=== PATIENT | female | born 1995 | race Caucasian/White ===

== ENCOUNTER → 2021-10-08 | Outpatient (REF) | payer BC | LOC: M SFHCWAGY 12:53 | PROVIDERS: ATTEND Specialist | DX: Z34.83 Encounter for supervision of other normal pregnancy, third trimester (principal) ==

== ENCOUNTER → 2021-10-08 | Outpatient (REF) | payer BC | LOC: M PLALAB 11:42 | PROVIDERS: ATTEND Specialist | DX: Z34.83 Encounter for supervision of other normal pregnancy, third trimester (principal); Z53.9 Procedure and treatment not carried out, unspecified reason ==

== ENCOUNTER 2021-11-01 01:23 | Inpatient (IN) | payer BC ==
[~2021-11-01] VITALS: Ht 154.9 cm; Wt 65.7 kg
[2021-11-01] VITALS (49 sets, daily range): BP systolic 85–143; BP diastolic 50–73
[2021-11-01] MEDS ORDERED: PRENTAB9 PO (01:42)
[2021-11-01] MEDS ORDERED: IRON65TA2 PO (01:42)
[2021-11-01] MEDS ORDERED: BUPR-69 PO (01:42)
[2021-11-01] MEDS ORDERED: HOME MED LIST COMPLETE! XX SCH (02:10)
[2021-11-01 02:27] LABS: HEMATOCRIT 33.5 % (36.0-47.0); HEMOGLOBIN 11.5 g/dl (12.0-15.5); MEAN CORPUSCULAR HEMOGLOBIN 30.8 pg (27.0-33.0); MEAN CORPUSCULAR HGB CONC 34.3 g/dl (32.0-36.5); MEAN CORPUSCULAR VOLUME 89.8 fl (80.0-96.0); PLATELET COUNT, AUTOMATED 217 10^3/uL (150-450); RED BLOOD COUNT 3.73 10^6/uL (4.00-5.40); WHITE BLOOD COUNT 12.1 10^3/uL (4.0-10.0)
[2021-11-01] MEDS ORDERED: LIDOCAINE 1% MDV 20ML VIAL INFIL PRN (02:40)
[2021-11-01] MEDS ORDERED: METHYLERGONOVINE MALEATE 0.2 MG/ML VIAL (J2210) IM PRN (02:40)
[2021-11-01] MEDS ORDERED: OXYTOCIN DRIP 30 UNITS in IV 1 EA IV PRN (02:40)
[2021-11-01] MEDS ORDERED: TRANEXAMIC ACID INJection 1,000 MG in NS 100 ML IV PRN (02:40)
[2021-11-01] MEDS: LR 1,000 ML IV SCH ×4 (02:59→10:47)
[2021-11-01] MEDS ORDERED: ONDANSETRON 4MG/2ML VIAL IV PRN (03:26)
[2021-11-01] MEDS ORDERED: NALOXONE INJ 0.4MG/1ML VIAL (J2310 PER 1MG) IV PRN (03:26)
[2021-11-01] MEDS ORDERED: ePHEDrine SULFATE 25 MG/5 ML(5MG/ML) SYRINGE IV PRN (03:26)
[2021-11-01] MEDS ORDERED: LACTATED RINGER'S 1000 ML IV PRN (03:26)
[2021-11-01] MEDS ORDERED: FENTANYL 2MCG/ML ROPIVACAINE 0.2% IN 0.9% NACL 100ML IVBAG As Ordered ONE (03:26)
[2021-11-01] MEDS ORDERED: REFRIGERATOR IV KEYS XX PRN (03:26)
[2021-11-01] MEDS ORDERED: diphenhydrAMINE 50MG/ML VIAL (J1200) IV PRN (03:26)
[2021-11-01] MEDS ORDERED: EPIDURAL/PCA KEYS XX PRN (03:26)
[2021-11-01] MEDS ORDERED: EPIDURAL COMMENT XX SCH (03:26)
[2021-11-01] MEDS: FENTANYL/ROPIVACAINE/NACL BAG 100 ML EPIDURAL SCH ×2 (04:38→13:48)
[2021-11-01] MEDS ORDERED: OXYTOCIN DRIP 30 UNITS in IV 1 EA IV SCH (11:50)
[2021-11-01] MEDS ORDERED: ACETAMINOPHEN 500 MG TAB PO PRN (15:30)
[2021-11-01] MEDS ORDERED: IBUPROFEN 600MG TAB PO PRN (15:30)
[2021-11-01] MEDS ORDERED: METHYLERGONOVINE MALEATE 0.2 MG TAB PO PRN (15:30)
[2021-11-01] MEDS ORDERED: ACETAMINOPHEN TAB 650MG DOSE (2X325MG) PO PRN (15:30)
[2021-11-01] MEDS ORDERED: DIBUCAINE 1% OINTMENT 30GM TOP PRN (15:30)
[2021-11-01] MEDS ORDERED: RHOGAM 300 MCG (1500 IU) INJ (J2790) IM SCH (15:30)
[2021-11-01] MEDS ORDERED: DOCUSATE SODIUM 100MG CAPSULE PO PRN (15:30)
[2021-11-01] MEDS ORDERED: MEASLES,MUMPS,RUBELLA VACCINE INJ (MMR-II) (90707) SC SCH (15:30)
[2021-11-01] MEDS ORDERED: OXYTOCIN DRIP 30 UNITS in IV 1 EA IV ONE (15:45)
[2021-11-01] MEDS: IBUPROFEN 800 MG TAB PO PRN (19:04)
[2021-11-02 06:00] VITALS: BP 105/61
[2021-11-02] MEDS: PRENATAL VITAMINS CHEWABLE TABLET PO SCH (08:37)
[2021-11-02] MEDS: IBUPROFEN 800 MG TAB PO PRN ×2 (08:37→17:01)
[2021-11-02] MEDS ORDERED: INFLUENZA QUADRIVALENT PF VACCINE 0.5ML SYRINGE IM ONE (09:00)
[2021-11-02 18:00] VITALS: BP 98/63
[2021-11-03] MEDS: IBUPROFEN 800 MG TAB PO PRN ×2 (05:56→12:20)
[2021-11-03 06:00] VITALS: BP 105/68
[2021-11-03] MEDS: PRENATAL VITAMINS CHEWABLE TABLET PO SCH (09:04)
[2021-11-03] MEDS ORDERED: ACET-683 PO (11:36)
[2021-11-03] MEDS ORDERED: IBUP80TA PO (11:36)
== END 2021-11-03 18:15 | disposition home or self-care (01) | DRG 560 ==
LOC: M LDO 01:23 → OBSVTOIN 02:18 → M LDI 02:18 → M OBS 17:15
PROVIDERS: ADMIT Obstetrics & Gynecology; ATTEND Obstetrics & Gynecology
PROC: 10E0XZZ Delivery of Products of Conception, External Approach (ICD-10-PCS; principal; 2021-11-01)
PROC: 0HQ9XZZ Repair Perineum Skin, External Approach (ICD-10-PCS; 2021-11-01)
DX: O69.81X0 Labor and delivery complicated by cord around neck, without compression, not applicable or unspecified (principal); O70.0 First degree perineal laceration during delivery; Z37.0 Single live birth; Z3A.39 39 weeks gestation of pregnancy; Z88.0 Allergy status to penicillin

== ENCOUNTER → 2022-12-12 | Outpatient (REF) | payer BC ==
[~2022-12-12] MED LIST: ACET-683 PO; BUPR-69 PO; IBUP80TA PO; IRON65TA2 PO; PRENTAB9 PO
== END ==
LOC: M SFHCWAGY 14:56
PROVIDERS: ATTEND Nurse Practitioner Family
DX: F52.6 Dyspareunia not due to a substance or known physiological condition (principal); Z11.3 Encounter for screening for infections with a predominantly sexual mode of transmission

== ENCOUNTER → 2023-02-20 | Outpatient (REF) | payer BC | LOC: M SFHCWAGY 17:09 | PROVIDERS: ATTEND Nurse Practitioner Family | DX: Z12.4 Encounter for screening for malignant neoplasm of cervix (principal) | CPT/HCPCS: 87624; G0123 ==

== ENCOUNTER 2023-03-31 11:33 | Day surgery (SDC) | payer BC ==
[~2023-03-31] VITALS: Ht 157.5 cm; Wt 47.6 kg
[~2023-03-31 11:33] MED LIST changes: +BACL10TA2 PO; +BUPR15TA PO; +BUSP10TA PO; +DEPO150I12 IM; +NS 1,000 ML IV ONE
[2023-03-31] MEDS ORDERED: fentaNYL 100 MCG/2 ML INJECTION As Ordered ONE (12:34)
[2023-03-31] MEDS ORDERED: propofoL 200 MG/20 ML VIAL As Ordered ONE (12:35)
[2023-03-31] MEDS ORDERED: LIDOCAINE 2% 100MG/5ML SDV (FOR ANES.) As Ordered ONE (12:35)
[2023-03-31 13:42] VITALS: BP 95/51; TEMP 97.2; O2SAT 99
== END 2023-03-31 14:25 | disposition home or self-care (01) ==
LOC: M OPP 11:33
PROVIDERS: ATTEND Internal Medicine Gastroenterology
DX: K58.1 Irritable bowel syndrome with constipation (principal); K63.5 Polyp of colon; K64.8 Other hemorrhoids; R13.10 Dysphagia, unspecified; R11.0 Nausea; Z79.899 Other long term (current) drug therapy; Z88.0 Allergy status to penicillin; Z87.891 Personal history of nicotine dependence; Z79.3 Long term (current) use of hormonal contraceptives
CPT/HCPCS: 43235; 45385; 88305; J3010